=== PATIENT | female | born 1985 | race Caucasian/White ===

== ENCOUNTER 2018-07-09 02:42 | Emergency (ER) | payer MEDICAID ==
[~2018-07-09] VITALS: Ht 165.1 cm; Wt 56.2 kg
[~2018-07-09 02:42] MED LIST: IBUP-1223 PO; None per pt; OXYC-302 PO
[2018-07-09] MEDS ORDERED: METH40TA3 PO (02:47)
--- NOTE | 2018-07-09 03:04 | NUR ---
FIRST CONTACT WITH PT. PT STATES SEEN AT [facility] FOR TODAY. DX OF BLADDER INFECTION. "THEY KEEP GIVING ME ANTIBIOTICS AND TURNING ME AWAY." STATES TROUBLE URINATING W/ HEMATURIA, NAUSEA. STATES BILATERAL FLANK PAIN. PT DENIES V/D AT THIS TIME. BP/SPO2 MONITORS IN PLACE. CALL LIGHT WITHIN REACH. EDMD AT BEDSIDE TO ASSESS.
[2018-07-09] MEDS ORDERED: KETOROLAC 30 MG/1 ML ONE (03:07)
[2018-07-09] MEDS ORDERED: ONDANSETRON ODT 4 MG ONE (03:07)
[2018-07-09 03:14] LABS: BASOPHILS # (AUTO) 0.02 x10^3/uL (0-0.1); BASOPHILS % (AUTO) 0 % (0-1); EOSINOPHILS # (AUTO) 0.27 x10^3/uL (0-0.4); EOSINOPHILS % (AUTO) 4 % (1-7); LYMPHOCYTES # (AUTO) 4.01 x10^3/uL (1-3.4); LYMPHOCYTES % (AUTO) 54 % (22-44); MD NO; MEAN CORPUSCULAR HEMOGLOBIN 31.3 pg (27.0-34.8); MEAN CORPUSCULAR HGB CONC 33.8 g/dL (32.4-35.8); MEAN CORPUSCULAR VOLUME 92.8 fL (80-100); MEAN PLATELET VOLUME 7.9 fL (7.4-10.4); MONOCYTES % (AUTO) 7 % (2-9); NEUTROPHILS # (AUTO) 2.61 x10^3/uL (1.8-6.8); NEUTROPHILS % (AUTO) 35 % (42-75); PLATELET COUNT 348 x10^3/uL (130-400); RED CELL DISTRIBUTION WIDTH 14.4 % (9.6-15.2)
--- NOTE | 2018-07-09 03:17 | NUR ---
PT AMB TO BR AND BACK TO ROOM WITH STEADY GAIT. UA SENT.
--- NOTE | 2018-07-09 03:17 | NUR ---
PT MEDICATED PER EMAR. PT TOLERATED WELL. PT'S AOX4. RESPS EVEN AND UNLABORED.
[2018-07-09 03:27] LABS: ALANINE AMINOTRANSFERASE 49 U/L (12-78); ALBUMIN 3.9 g/dL (3.4-5.0); ANION GAP 5 mmol/L (5-15); CALCIUM 8.8 mg/dL (8.5-10.1); CHLORIDE 106 mmol/L (98-107)
[2018-07-09] MEDS ORDERED: KETOROLAC 30 MG/1 ML IM ONE (03:30)
[2018-07-09] MEDS ORDERED: ONDANSETRON ODT 4 MG PO ONE (03:30)
[2018-07-09 03:31] LABS: ALKALINE PHOSPHATASE 62 U/L (45-117); BILIRUBIN,TOTAL 0.4 mg/dL (0.2-1.0); TOTAL PROTEIN 7.2 g/dL (6.4-8.2)
[2018-07-09 03:32] LABS: MICROSCOPIC INDICATED
[2018-07-09 03:42] LABS: CULTURE INDICATED? NO
[2018-07-09 04:38] VITALS: BP 107/64
--- NOTE | 2018-07-09 04:39 | NUR ---
PT GIVEN DC INSTRUCTIONS. PT AMB TO DC WITH STEADY GAIT. PT'S AOX4. RESPS EVEN AND UNLABORED. NO ACUTE DISTRESS AT DC.
== END 2018-07-09 04:40 | disposition home or self-care (01) ==
LOC: ED 04:35
DX: R10.31 Right lower quadrant pain (principal); R10.30 Lower abdominal pain, unspecified; K21.9 Gastro-esophageal reflux disease without esophagitis
CPT/HCPCS: 36415; 74176; 80053; 81001; 84703; 85025; 96372; 99284; J1885; Q0162

== ENCOUNTER 2020-12-30 17:31 | Emergency (ER) | payer MEDICAID ==
[~2020-12-30 17:31] MED LIST changes: +METH40TA3 PO; -OXYC-302 PO; +OXYC1TAB12 PO
--- NOTE | 2020-12-30 18:33 | NUR ---
CALLED FOR TRIAGE, NO ANSWER
--- NOTE | 2020-12-30 18:42 | NUR ---
CALLED FOR TRIAGE, NO ANSWER
--- NOTE | 2020-12-30 18:52 | NUR ---
[id number] WHEN CALLED FOR TRIAGE
== END 2020-12-30 18:57 | disposition left against medical advice (07) ==
LOC: ED 17:45
DX: M27.2 Inflammatory conditions of jaws (principal); Z53.21 Procedure and treatment not carried out due to patient leaving prior to being seen by health care provider